=== PATIENT | male | born 1945 | race Two or more races ===

== ENCOUNTER 2021-04-12 16:13 | Outpatient (CLI) | payer OTHER | END 2021-04-12 16:19 | disposition home or self-care (01) | LOC: RAD 16:13 | PROVIDERS: ATTEND Orthopaedic Surgery | DX: M25.512 Pain in left shoulder (principal); M75.42 Impingement syndrome of left shoulder ==

== ENCOUNTER 2021-04-19 10:46 | Outpatient (CLI) | payer OTHER | END 2021-04-19 10:51 | disposition home or self-care (01) | LOC: SONOGRAMA 10:46 | PROVIDERS: ATTEND Orthopaedic Surgery | DX: M25.512 Pain in left shoulder (principal) ==

== ENCOUNTER 2021-04-20 12:22 | Outpatient (CLI) | payer OTHER | END 2021-04-20 12:32 | disposition home or self-care (01) | LOC: RAD 12:22 | PROVIDERS: ATTEND Orthopaedic Surgery | DX: M17.12 Unilateral primary osteoarthritis, left knee (principal); Z96.651 Presence of right artificial knee joint ==

== ENCOUNTER 2021-05-15 10:05 | Outpatient (CLI) | payer OTHER ==
[2021-05-15] MEDS ORDERED: TOPROL XL25 M1 PO (15:35)
[2021-05-15] MEDS ORDERED: CRESTOR10 MG PO (15:35)
[2021-05-15] MEDS ORDERED: XARELTO15 MG PO (15:35)
== END 2021-05-15 10:13 | disposition home or self-care (01) ==
LOC: LAB 10:05
PROVIDERS: ATTEND Orthopaedic Surgery
DX: D64.89 Other specified anemias (principal); D68.8 Other specified coagulation defects; N39.0 Urinary tract infection, site not specified; E11.9 Type 2 diabetes mellitus without complications; E03.8 Other specified hypothyroidism; I10 Essential (primary) hypertension; I49.8 Other specified cardiac arrhythmias; B95.62 Methicillin resistant Staphylococcus aureus infection as the cause of diseases classified elsewhere; E83.42 Hypomagnesemia; E88.89 Other specified metabolic disorders

== ENCOUNTER 2021-05-15 11:27 | Outpatient (CLI) | payer OTHER ==
[2021-05-15] MEDS ORDERED: XARELTO15 MG PO (15:35)
[2021-05-15] MEDS ORDERED: TOPROL XL25 M1 PO (15:35)
[2021-05-15] MEDS ORDERED: CRESTOR10 MG PO (15:35)
== END 2021-05-15 12:17 | disposition home or self-care (01) ==
LOC: RAD 11:27
PROVIDERS: ATTEND Orthopaedic Surgery
DX: M25.561 Pain in right knee (principal); M25.562 Pain in left knee; Z76.89 Persons encountering health services in other specified circumstances

== ENCOUNTER 2021-05-25 11:13 | Inpatient (IN) | payer OTHER ==
[~2021-05-25] VITALS: Ht 175.3 cm; Wt 86.6 kg
[~2021-05-25 11:13] MED LIST: CRESTOR10 MG PO; TOPROL XL25 M1 PO; XARELTO15 MG PO
[2021-05-29] MEDS ORDERED: PREDNISONE10 M2 (16:29)
[2021-05-29] MEDS ORDERED: REVLIMID10 MG (16:29)
== END 2021-05-31 12:20 | disposition home or self-care (01) | DRG 470 ==
LOC: O/R 05-29 09:13 → SURH 05-29 09:30
PROVIDERS: ADMIT Orthopaedic Surgery; ATTEND Orthopaedic Surgery
PROC: 0SRD0J9 Replacement of Left Knee Joint with Synthetic Substitute, Cemented, Open Approach (ICD-10-PCS; principal; 2021-05-29 09:30)
DX: M17.12 Unilateral primary osteoarthritis, left knee (principal); D62 Acute posthemorrhagic anemia; I10 Essential (primary) hypertension